=== PATIENT | female | born 1955 | race Caucasian/White ===

== ENCOUNTER 2020-12-22 08:15 | Outpatient (CLI) | payer MEDICARE ==
[2020-12-22] MEDS ORDERED: CHOL10003 PO (09:08)
[2020-12-22] MEDS ORDERED: OMEG1CAP6 PO (09:08)
[2020-12-22] MEDS ORDERED: MAGN100T PO (09:08)
[2020-12-22] MEDS ORDERED: MULT-449 PO (09:08)
[2020-12-22] MEDS ORDERED: LACT1CAP35 PO (09:08)
[2020-12-22 09:11] LABS: BASOPHILS % (AUTO) 1 % (0-1); EOSINOPHILS % (AUTO) 2 % (1-7); LYMPHOCYTES % (AUTO) 39 % (22-44); MEAN CORPUSCULAR HEMOGLOBIN 29.9 pg (27.0-34.8); MEAN CORPUSCULAR HGB CONC 33.5 g/dL (32.4-35.8); MEAN PLATELET VOLUME 8.6 fL (7.4-10.4); MONOCYTES % (AUTO) 8 % (2-9); NEUTROPHILS % (AUTO) 50 % (42-75); PLATELET COUNT 233 x10^3/uL (130-400); RED BLOOD COUNT 5.05 x10^6/uL (3.82-5.3); RED CELL DISTRIBUTION WIDTH 15.1 % (9.6-15.2)
[2020-12-22 09:19] LABS: INTERNATIONAL NORMALIZED RATIO 0.97 (0.93-1.1); PROTHROMBIN TIME 10.4 Seconds (9.6-11.5)
[2020-12-22 09:20] LABS: ALANINE AMINOTRANSFERASE 26 U/L (12-78); ANION GAP 5 mmol/L (5-15); CALCIUM 9.4 mg/dL (8.5-10.1); CHLORIDE 108 mmol/L (98-107); CREATININE 0.63 mg/dL (0.55-1.02)
[2020-12-22 09:22] LABS: ALKALINE PHOSPHATASE 65 U/L (45-117); BILIRUBIN,TOTAL 0.6 mg/dL (0.2-1.0); TOTAL PROTEIN 7.5 g/dL (6.4-8.2)
== END 2020-12-22 23:59 | disposition home or self-care (01) ==
LOC: STAR 08:15
PROVIDERS: ATTEND Obstetrics & Gynecology
DX: Z01.818 Encounter for other preprocedural examination (principal); N85.00 Endometrial hyperplasia, unspecified; R93.89 Abnormal findings on diagnostic imaging of other specified body structures
CPT/HCPCS: 36415; 71046; 80053; 85025; 85610; 85730; 86304; 93005

== ENCOUNTER 2021-01-03 07:52 | Day surgery (SDC) | payer MEDICARE ==
[~2021-01-03] VITALS: Ht 160 cm; Wt 64.5 kg
[~2021-01-03 07:52] MED LIST: CHOL10003 PO; LACT1CAP35 PO; MAGN100T PO; MULT-449 PO; OMEG1CAP6 PO
[2021-01-03] MEDS ORDERED: CEFOTETAN PMX 2GM/50ML 50 ML IVPB ONE (08:00)
[2021-01-03] MEDS ORDERED: LACTATED RINGERS 1,000 ML IV SCH (08:00)
[2021-01-03 08:24] VITALS: BP 120/84
[2021-01-03] MEDS ORDERED: CHLORHEXIDINE 15 ML UDC PO ONE (09:30)
[2021-01-03] MEDS ORDERED: BUPIVACAINE/PF 0.25% ONE (10:34)
[2021-01-03] MEDS ORDERED: EPINEPHRINE 1 MG/ML, 1ML ONE (10:35)
[2021-01-03] MEDS ORDERED: INDOCYANINE GREEN 25 MG VIAL ONE (10:35)
[2021-01-03] MEDS ORDERED: HEPARIN 1,000 UNITS/ML, 10ML ONE (10:35)
[2021-01-03] MEDS ORDERED: FENTANYL PF 250 MCG/5ML ONE (10:52)
[2021-01-03] MEDS ORDERED: PROMETHAZINE 25 MG SUPP PR PRN (11:30)
[2021-01-03] MEDS ORDERED: PROMETHAZINE 25 MG/ML, 1ML IVPush PRN (11:30)
[2021-01-03] MEDS ORDERED: HYDROmorphone 1 MG/ML, 1ML INJ IVPush PRN (11:30)
[2021-01-03] MEDS ORDERED: ALBUTEROL SULFATE 2.5 MG/3 ML NPPB PRN (11:30)
[2021-01-03] MEDS ORDERED: hydrALAzine 20 MG/ML, 1ML IV PRN (11:30)
[2021-01-03] MEDS ORDERED: METOPROLOL 1 MG/ML, 5ML IV PRN (11:30)
[2021-01-03] MEDS ORDERED: METHOCARBAMOL 1,000 MG in DEXTROSE 5% 100 ML IV PRN (11:30)
[2021-01-03] MEDS ORDERED: OXYcodone 5 MG/5 ML ORAL.SOL UDC PO PRN (11:30)
[2021-01-03] MEDS ORDERED: ONDANSETRON 2MG/ML, 2ML IVPush PRN (11:30)
[2021-01-03] MEDS ORDERED: LORazepam 2 MG/ML, 1ML IVPush PRN (11:30)
[2021-01-03] MEDS ORDERED: FENTANYL PF 100 MCG/2ML IV PRN (11:30)
[2021-01-03] MEDS ORDERED: LABETALOL 5MG/ML, 20ML IV PRN (11:30)
[2021-01-03] MEDS ORDERED: ACETAMINOPHEN 325 MG TABLET PO PRN (11:30)
[2021-01-03] MEDS ORDERED: ONDANSETRON 2MG/ML, 2ML ONE (12:39)
[2021-01-03] MEDS ORDERED: NEOSTIGMINE 1 MG/ML, 10ML ONE (12:39)
[2021-01-03] MEDS ORDERED: PROPOFOL 10 MG/ML, 20ML ONE (12:39)
[2021-01-03] MEDS ORDERED: SUCCINYLCHOLINE 20 MG/ML, 10ML ONE (12:39)
[2021-01-03] MEDS ORDERED: DEXAMETHASONE 4 MG/ML, 1ML ONE (12:39)
[2021-01-03] MEDS ORDERED: ROCURONIUM 10MG/ML,5ML ONE (12:39)
[2021-01-03] MEDS ORDERED: CEFAZOLIN 1,000 MG ONE (12:39)
[2021-01-03] MEDS ORDERED: GLYCOPYRROLATE 0.2MG/1ML, 5ML ONE (12:39)
[2021-01-03] MEDS ORDERED: FENTANYL PF 100 MCG/2ML ONE ×2 (12:40→14:05)
[2021-01-03] MEDS ORDERED: OXYcodone 5 MG/5 ML ORAL.SOL UDC ONE (13:52)
[2021-01-03] MEDS ORDERED: ACETAMINOPHEN 650 MG/20.3 ML UDC ONE (13:53)
== END 2021-01-03 16:20 | disposition home or self-care (01) ==
LOC: OUT 07:52
PROVIDERS: ATTEND Obstetrics & Gynecology
DX: N80.0 Endometriosis of uterus (principal); D25.9 Leiomyoma of uterus, unspecified; Z20.822 Contact with and (suspected) exposure to COVID-19; Z79.899 Other long term (current) drug therapy; Z88.0 Allergy status to penicillin; Z80.1 Family history of malignant neoplasm of trachea, bronchus and lung; Z80.0 Family history of malignant neoplasm of digestive organs
CPT/HCPCS: 36415; 38570; 58552; 86850; 86900; 87635; 88112; 88305; 88309; 88331; 88332; 88333; J0171; J1100; J1644; J2405; J2704; J2710; J3010; J7120; J0690; J0330